=== PATIENT | female | born 1990 | race Caucasian/White ===

== ENCOUNTER 2024-11-07 09:28 | Emergency (ER) | payer SELFPAY ==
[2024-11-07 09:35] VITALS: BP 122/64; PULSE 88; TEMP 36.7; O2SAT 100; BMI 21.4
[2024-11-07 09:53] VITALS: O2SAT 99
[2024-11-07] MEDS: ORPHENADRINE 60 MG/2 ML VIAL IM (09:57)
[2024-11-07] MEDS: KETOROLAC TROMETHAMINE 30 MG/ML VIAL IM (09:57)
--- NOTE | 2024-11-07 13:07 | ED_ITS ---
HPI HPI - Back Pain/Injury General Chief Complaint: Back Pain/Injury Stated Complaint: BACK PAIN Time Seen by Provider: 11/07/24 09:39 Source: patient Mode of arrival: walk-in Limitations: no limitations History of Present Illness HPI Narrative: Patient is coming to the ER with the posterior aspect of her chest hurting for the last 3 days mostly whenever she is trying to grab something with her arm she will feel the pain in her back , she denies any difficulty breathing and she feels the pain mostly when she turned in the bed, she mentioned that she carries some heavy boxes at work, she denies any injury or the pain starting at work The patient mentioned that the pain there whenever she is moving she is denying difficulty breathing no chest pain no nausea no vomiting no other complaints and no history of any recent long trips or any leg edema Related Data Previous Rx's ?Medication ?Instructions ?Recorded diclofenac sodium 75 mg 75 mg PO BID PRN pain #20 ta bs 11/07/24 tablet,delayed release orphenadrine citrate 100 mg 100 mg PO BID PRN muscle s pasm #20 11/07/24 tablet,extended release tabs Allergies Allergy/AdvReac Type Severity Reaction Status Date / Time tramadol Allergy Mild Vomiting Verified 11/07/24 09:38 Opioid HPI Opioid Management Most Recent Opioid Data: Last Pain Scale 7 Today, 09:57 Last MAR Pain Assessment Today, 09:57 Review of Systems ROS Status of ROS 10 or more systems reviewed and unremark able except as noted in history and below Exam Narrative Exam Narrative: Nurses notes and vital signs reviewed and patient is not hypoxic. General: Well-appearing and in no apparent distress. Skin: Warm, dry, no pallor noted. No rash. Head: Normocephalic, atraumatic. Neck: Supple, non-tender. Eye: Pupils are equal, round and EOMI. No scleral icterus. Ears, Nose, Mouth, and Throat: TM are clear, no nasal mucosal hypertrophy. Oral mucosa is moist, no posterior oropharynx erythema, uvula is mid-line Cardiovascular: Regular Rate and Rhythm without murmur, gallop or rub. Respiratory: No accessory muscle use or respiratory distress. Lungs are clear to auscultation, no wheezing, rales or rhonchi Chest Wall: Tenderness upon palpation of the posterior aspect of the left upper chest wall around the scapular area and that patient pain induced also with the patient moving her left upper extremity forward mostly with flexion. Back: No midline thoracic or lumbar vertebral tenderness. No CVA tenderness Musculoskeletal: normal ROM, no calf or popliteal tenderness, no lower extremity edema/swelling GI: Abdomen is soft, non-distended. Normal bowel sounds. No masses appreciated. No tenderness to palpation. No rebound, guarding, or rigidity noted. Neurological: A&O x4. No cranial nerve dysfunction observed.. Constitutional Vital Signs, click to edit/add: Last Vital Signs Temp 98.1 F 11/07/24 09:35 Pulse 88 11/07/24 09:35 Resp 18 11/07/24 09:35 BP 122/64 11/07/24 09:35 Pulse Ox 99 11/07/24 09:53 O2 Del Method Room Air 11/07/24 09:53 Course Vital Signs Vital signs: Vital Signs Temperature 98.1 F 11/07/24 09:35 Pulse Rate 88 11/07/24 09:35 Respiratory Rate 18 11/07/24 09:35 Blood Pressure 122/64 11/07/24 09:35 Pulse Oximetry 100 11/07/24 09:35 Oxygen Delivery Method Room Air 11/07/24 09:35 Temperature 98.1 F 11/07/24 09:35 Pulse Rate 88 11/07/24 09:35 Respiratory Rate 18 11/07/24 09:35 Blood Pressure 122/64 11/07/24 09:35 Pulse Oximetry 99 11/07/24 09:53 Oxygen Delivery Method Room Air 11/07/24 09:53 MDM - Back Pain/Injury MDM Narrative Medical decision making narrative: The patient pain is muscular and comes whenever she is moving and there is no difficulty breathing and there is no concern right now for PE especially with the patient having no leg edema no difficulty breathing the pain is only there whenever she is moving and she just mentioned that she was carrying some heavy boxes at work after which the pain started The patient will be treated with Toradol in the ER discharged home with Voltaren and Norflex instructed on monitoring her symptoms she is to come back to the ER in case of any worsening of her symptoms The patient is to follow up with primary care physician in next 2-3 days or to return to the emergency department should any of the signs or symptoms worsen or new symptoms develop. The patient agrees with the following Diagnosis and Treatment plan and the patient will be discharged home. Discharge Plan Discharge Chief Complaint: Back Pain/Injury Clinical Impression: Acute chest wall pain Patient Disposition: Home, Self-Care Time of Disposition Decision: 09:51 Condition: Good Prescriptions / Home Meds: New orphenadrine citrate 100 mg tablet extended release 100 mg PO BID PRN (Reason: muscle spasm) Qty: 20 0RF diclofenac sodium 75 mg tablet,delayed release (DR/EC) 75 mg PO BID PRN (Reason: pain) Qty: 20 0RF Print Language: American Instructions: Chest Wall Pain (ED) Discharge Date/Time: 11/07/24 10:11
== END 2024-11-07 10:11 | disposition home or self-care (01) ==
LOC: ER 10:08
PROVIDERS: Emergency Provider Emergency Medicine
DX: R07.89 Other chest pain (principal)
CPT/HCPCS: 96372; 99284; J1885; J2360

== ENCOUNTER 2024-11-22 13:09 | Emergency (ER) | payer OTHER, SELFPAY ==
[2024-11-22 13:17] VITALS: BP 105/69; PULSE 83; TEMP 37.1; O2SAT 100; BMI 20.7
--- NOTE | 2024-11-22 13:33 | ED_ITS ---
HPI HPI - General Adult General Chief complaint: Back Pain/Injury Stated complaint: BACK PAIN Time Seen by Provider: 11/22/24 13:24 History of Present Illness HPI narrative: 34-year-old female presents for pain in her back. It is in the lumbar and thoracic spine area and she has had it for a few weeks. She points to the area just left of the thoracic spine and all the way across her lower back to indicate the areas of pain. She states it is from lifting heavy boxes at work and she continues to do so at work. She did not fall. She had been seen here and was put on a muscle relaxer but is not helping. Related Data Previous Rx's ?Medication ?Instructions ?Recorded diclofenac sodium 75 mg 75 mg PO BID PRN pain #20 ta bs 11/07/24 tablet,delayed release orphenadrine citrate 100 mg 100 mg PO BID PRN muscle s pasm #20 11/07/24 tablet,extended release tabs acetaminophen 300 mg-codeine 30 mg 1 tab PO Q6H PRN pa in 5 days #20 11/22/24 tablet tabs methocarbamol 500 mg tablet 500 mg PO Q8H PRN pain #20 tabs 11/22/24 Allergies Allergy/AdvReac Type Severity Reaction Status Date / Time tramadol Allergy Mild Vomiting Verified 11/22/24 13:15 Opioid HPI Opioid Management Most Recent Opioid Data: Last Pain Scale 7 11/07/24, 09:57 Review of Systems ROS Narrative A ten point review of systems is negative except as noted above. PFSH PFSH Social History Little interest or pleasure in doing things: not at all Feeling down, depressed, or hopeless: not at all Exam Narrative Exam Narrative: Nurses note and vital signs reviewed and patient is not hypoxic. General: The patient appears well and in no apparent distress. Patient is resting comfortably on cart. Skin: Warm, dry, no pallor noted. There is no rash noted. Head: Normocephalic, atraumatic Eye: Normal conjunctiva, no drainage Ears, Nose, Mouth, and Throat: oral mucosa is moist. Nares patent. Cardiovascular: Regular Rate and Rhythm Respiratory: Patient is in no distress, no accessory muscle use, lungs are clear to auscultation, no wheezing, rales or rhonchi Back: No bruise rash or abrasion. She has no focal area of tenderness to palpation anywhere on her back GI: Soft and nontender Musculoskeletal: The patient has no evidence of calf tenderness, no pitting edema, symmetrical pulses noted bilaterally Neurological: A&O, normal speech Psychiatric: Cooperative Constitutional Vital Signs, click to edit/add: Last Vital Signs Temp 98.7 F 11/22/24 13:17 Pulse 83 11/22/24 13:17 Resp 18 11/22/24 13:17 BP 105/69 11/22/24 13:17 Pulse Ox 100 11/22/24 13:17 O2 Del Method Room Air 11/22/24 13:17 Course Vital Signs Vital signs: Vital Signs Temperature 98.7 F 11/22/24 13:17 Pulse Rate 83 11/22/24 13:17 Respiratory Rate 18 11/22/24 13:17 Blood Pressure 105/69 11/22/24 13:17 Pulse Oximetry 100 11/22/24 13:17 Oxygen Delivery Method Room Air 11/22/24 13:17 Temperature 98.7 F 11/22/24 13:17 Pulse Rate 83 11/22/24 13:17 Respiratory Rate 18 11/22/24 13:17 Blood Pressure 105/69 11/22/24 13:17 Pulse Oximetry 100 11/22/24 13:17 Oxygen Delivery Method Room Air 11/22/24 13:17 Medical Decision Making MDM Narrative Medical decision making narrative: X-ray showed no acute findings and should be treated symptomatically. Treatment diagnosis and follow-up were discussed with the patient. Differential Diagnosis Differential Diagnosis: Lumbar strain, compression fracture, fracture Lab Data Lab results reviewed: Yes I reviewed the patient's lab results Labs: Lab Results 11/22/24 Range/Units 13:25 Urine Color Lt. yellow (YELLOW) Urine Clarity Clear (CLEAR) Urine pH 6.0 (5.0-9.0) Ur Specific [place] <=1.005 A (1.005-1.025) Urine Protein Negative (NEG/TRACE) mg/dL Urine Glucose (UA) Negative (NEGATIVE) mg/dL Urine Ketones Negative (NEGATIVE) mg/dL Urine Occult Blood Negative (NEGATIVE) Urine Nitrite Negative (NEGATIVE) Urine Bilirubin Negative (NEGATIVE) Urine Urobilinogen 0.2 (0.2-1.0) EU/dL Ur Leukocyte Esterase Small A (NEGATIVE) Urine RBC 0-2 (0-2) #/HPF Urine WBC 2-5 A (NONE SEEN) #/HPF Ur Squamous Epith Cells Few A (NONE/RARE) #/LPF Urine Crystals None seen (None Seen) #/HPF Urine Bacteria Trace A (NONE SEEN) #/HPF Urine Casts None seen (NONE SEEN) #/LPF Urine Mucus None seen (NONE SEEN) Ur Culture Indicated? Yes-[facility] [place] HCG, Qual Negative (NEGATIVE) Imaging Data Thoracic and lumbar spine x-rays: Radiologist's impression: No acute osseous abnormality evident. Mild S shaped scoliotic curvature of the thoracolumbar spine Discharge Plan Discharge Chief Complaint: Back Pain/Injury Clinical Impression: Low back pain Patient Disposition: Home, Self-Care Time of Disposition Decision: 15:00 Condition: Good Mode of Transportation: Private Vehicle Prescriptions / Home Meds: New acetaminophen-codeine 300-30 mg tablet 1 tab PO Q6H PRN (Reason: pain) 5 Days Qty: 20 0RF methocarbamol 500 mg tablet 500 mg PO Q8H PRN (Reason: pain) Qty: 20 0RF No Action orphenadrine citrate 100 mg tablet extended release 100 mg PO BID PRN (Reason: muscle spasm) Qty: 20 0RF diclofenac sodium 75 mg tablet,delayed release (DR/EC) 75 mg PO BID PRN (Reason: pain) Qty: 20 0RF Print Language: Slovenian Instructions: Acute Low Back Pain (ED) Referrals: Physician,Non-Staff, MD [Primary Care Provider] - 1 week
[2024-11-22 13:42] LABS: Bilirubin Urine NEGATIVE (NEGATIVE); Blood Urine NEGATIVE (NEGATIVE); Clarity Urine CLEAR (CLEAR); Color Urine LT. YELLOW (YELLOW); Glucose Urine UA NEGATIVE (NEGATIVE); Ketones Urine NEGATIVE (NEGATIVE); Leukocyte Esterase Urine SMALL (NEGATIVE); Nitrite Urine NEGATIVE (NEGATIVE); Protein Urine NEGATIVE (NEG/TRACE); Specific Gravity Urine <=1.005 (1.005-1.025); Urobilinogen Urine 0.2 EU/dL (0.2-1.0)
[2024-11-22 13:44] LABS: HCG Qualitative Urine* NEGATIVE (NEGATIVE); Internal Control Within Normal Limits
[2024-11-22 14:09] LABS: Bacteria Urine TRACE #/HPF (NONE SEEN); Cast Seen? NONE SEEN #/LPF (NONE SEEN); Crystals Seen? None Seen #/HPF (None Seen); Mucus Urine NONE SEEN (NONE SEEN); RBC Urine 0-2 #/HPF (0-2); Squamous Epithelial Cell Urine FEW #/LPF (NONE/RARE); Urine Culture Indicated YES-FRMC
== END 2024-11-22 15:20 | disposition home or self-care (01) ==
PROVIDERS: Emergency Provider Emergency Medicine
DX: M54.50 Low back pain, unspecified (principal); M54.6 Pain in thoracic spine
CPT/HCPCS: 72070; 72100; 81001; 84703; 87086; 99284

== ENCOUNTER 2025-05-18 16:44 | Emergency (ER) | payer SELFPAY ==
[2025-05-18 16:50] VITALS: BP 121/70; PULSE 64; TEMP 36.8; O2SAT 100; BMI 21.4
[2025-05-18 16:53] VITALS: BP 121/70; O2SAT 100
--- NOTE | 2025-05-18 17:42 | XR_ITS ---
[facility] [place] [id number] Patient Name: JULIO MCKOY MRN: [id number] date: 1990 Sex: F Assigned Patient Location: ED.MAIN Current Patient Location: ED.MAIN Accession/Order Number: [id number] Exam Date: 05/18/2025 17:55 Report Date: 05/18/2025 18:12 At the request of: KIRSTIN BARBA DO Procedure: XR chest 2V Plain film chest 2 view HISTORY: Left-sided rib pain. No injury COMPARISON: None FINDINGS: SUPPORT DEVICES: None POSTSURGICAL CHANGES: None HEART: Within normal limits PULMONARY NAZIA: Within normal limits MEDIASTINUM: Unremarkable LUNGS AND PLEURA: No acute lung process, pleural effusion or pneumothorax identified. BONY STRUCTURES: Moderate scoliosis ADDITIONAL FINDINGS None XR/XR chest 2V IMPRESSION: No acute process. Impression dictated by: Guillermo Rowe M.D. 05/18/2025 6:12 PM Dictation Location: [employer] Electronically authenticated by: [id number] Y Date: 05/18/2025 18:12
--- NOTE | 2025-05-18 17:42 | ECG_ITS ---
[facility] Test Date: 2025-05-18 Pat Name: JULIO MCKOY Department: Room: - Gender: Female Division [employer]: : 1990 Requested By: [id number] Order Number: [id number] Reading MD: WILMER RAYMUNDO M.D. Measurements Intervals [place] Rate: 54 P: 50 NH: 124 QRS: 85 QRSD: 86 T: 40 QT: 418 QTc: 405 Interpretive Statements 1100 Sinus rhythm 9110 normal ECG No previous ECG available for comparison Electronically Signed On 05-18-2025 18:16:56 EST by WILMER RAYMUNDO M.D.
[2025-05-18 17:46] VITALS: PULSE 61
[2025-05-18 17:50] VITALS: PULSE 79
[2025-05-18 18:00] LABS: Hematocrit 39.1 % (36.0-48.0); Hemoglobin 13.2 g/dL (12.0-16.0); Immature Granulocytes Abs Auto 0.01 10^3/uL (0.00-0.03); Immature Granulocytes Pct Auto 0.1 % (0.0-0.5); Lymphocytes Absolute Auto 3.0 10^3/uL (1.2-3.8); Mean Corpuscular HGB Conc 33.8 g/dL (29.9-35.2); Mean Corpuscular Hemoglobin 30.2 pg (26.7-34.0); Mean Corpuscular Volume 89.5 fL (81.0-99.0); Platelet Count 255 10^3/uL (150-450); Red Blood Count 4.37 10^6/uL (4.20-5.40); White Blood Count 8.3 10^3/uL (4.0-11.0)
[2025-05-18 18:20] LABS: Alanine Aminotransferase 14 U/L (14-59); Albumin Globulin Ratio 1.1; Albumin Level 3.6 g/dL (3.4-5.0); Alkaline Phosphatase 55 U/L (46-116); Anion Gap 9.5; Aspartate Amino Transferase 12 U/L (15-37); Blood Urea Nitrogen 5.0 mg/dL (7.0-18.0); Calcium 9.8 mg/dL (8.5-10.1); Carbon Dioxide 30.3 mmol/L (21.0-32.0); Chloride 105 mmol/L (98-107); Estimated GFR (African America >60 (>=60 mL/min/1.73m^2); Estimated GFR (Non-African Ame >60 (>=60 mL/min/1.73m^2); Globulin 3.2 g/dL; Glucose 86 mg/dL (74-106); Potassium 3.8 mmol/L (3.5-5.1); Sodium 141 mmol/L (136-145); Total Protein 6.8 g/dL (6.4-8.2)
[2025-05-18 18:50] VITALS: BP 121/70; PULSE 70; O2SAT 99
--- NOTE | 2025-05-19 09:55 | ED_ITS ---
HPI HPI - General Adult General Chief complaint: Chest Pain Stated complaint: SHARP PAIN LEFT SIDE UPPER TORSO Time Seen by Provider: 05/18/25 16:56 Source: patient Mode of arrival: walk-in History of Present Illness HPI narrative: Patient is a healthy 34-year-old female with no chronic medical conditions presenting to the emergency department for evaluation of left-sided chest pain. Patient states that she has been having burning pain in the left side of her chest/ribs for the last 3 days. She states that wearing a bra makes the pain worse. She denies any trauma to the area. She denies any rashes. She denies history of shingles. She denies history of OK or cardiac diseases. She denies any chest pain or shortness of breath. No fevers or chills. No nausea or vomiting. Related Data Home Medications ?Medication ?Instructions ?Recorded ?Confirmed No Known Home Medications 05/18/2502/02 Allergies Allergy/AdvReac Type Severity Reaction Status Date / Time tramadol Allergy Mild Vomiting Verified 11/22/24 13:15 Opioid HPI Opioid Management Most Recent Opioid Data: Last Pain Scale 7 11/07/24, 09:57 Review of Systems ROS Status of ROS 10 or more systems reviewed and unremark able except as noted in history and below PFSH PFSH Social History Little interest or pleasure in doing things: not at all Feeling down, depressed, or hopeless: not at all Exam Narrative Exam Narrative: CONSTITUTIONAL: Well-appearing, answering questions and following commands appropriately SKIN: Was warm and dry, no rashes or vesicles on the chest wall. EYES: Sclerae white. EARS, NOSE, THROAT: Moist oral mucosa. RESPIRATORY: Clear to auscultation bilaterally, no wheezes, crackles, or stridor, no use of accessory muscles CARDIOVASCULAR: Normal rate and regular rhythm. There is no S3, S4, murmur, rub. GASTROINTESTINAL: Abdomen is nondistended. MUSCULOSKELETAL: There is no reproducible tenderness to palpation throughout the left side of her rib cage. There are no deformities of the chest wall. NEUROLOGIC: Patient is awake and alert. Equal strength and sensation to light touch in the bilateral upper extremities. Facies were symmetrical. Constitutional Vital Signs, click to edit/add: Last Vital Signs Temp 98.2 F 05/18/25 16:50 Pulse 70 05/18/25 18:50 Resp 18 05/18/25 18:50 BP 121/70 05/18/25 18:50 Pulse Ox 99 05/18/25 18:50 O2 Del Method Room Air 05/18/25 18:50 Course Vital Signs Vital signs: Vital Signs Temperature 98.2 F 05/18/25 16:50 Pulse Rate 64 05/18/25 16:50 Respiratory Rate 16 05/18/25 16:50 Blood Pressure 121/70 05/18/25 16:50 Pulse Oximetry 100 05/18/25 16:50 Oxygen Delivery Method Room Air 05/18/25 16:50 Temperature 98.2 F 05/18/25 16:50 Pulse Rate 70 05/18/25 18:50 Respiratory Rate 18 05/18/25 18:50 Blood Pressure 121/70 05/18/25 18:50 Pulse Oximetry 99 05/18/25 18:50 Oxygen Delivery Method Room Air 05/18/25 18:50 Medical Decision Making MDM Narrative Medical decision making narrative: Patient is a 34-year-old female presenting to the emergency department for 3-day history of atraumatic burning left-sided rib/chest pain. Vital signs arrival are within normal limits. She is afebrile and hemodynamically stable. Examination as noted above. My clinical impression is that the patient symptoms may be secondary to early shingles, with the rash not yet presenting. However, I did obtain a cardiac workup and chest x-ray to rule out underlying etiologies such as arrhythmia, pneumothorax, or rib fracture/lesions. Laboratory studies were unremarkable. No significant electrolyte or metabolic derangement. No evidence of acute kidney injury. No anemia, leukocytosis, or thrombocytopenia. No transaminitis or hyperbilirubinemia. Chest x-ray independently reviewed/interpreted by myself demonstrated no acute cardiopulmonary process. 12 Lead EKG: Normal sinus rhythm at normal rate. Normal axis. No ST segment elevations. QRS, NH, and QTc interval within normal limits. Final impression: normal sinus rhythm without evidence of acute myocardial ischemia. I do believe the patient is stable for discharge. Patient's presentation is most likely consistent with musculoskeletal pain or early shingles. They were instructed to follow up with her PCP for further care. Return precautions were given including any new or worsening symptoms, including development of a vesicular rash. Patient understands and agrees to the plan. FINAL IMPRESSION: #Acute left-sided chest pain DISPOSITION: Discharged home CONDITION: Good Lab Data Lab results reviewed: Yes I reviewed the patient's lab results Labs: Lab Results 05/18/25 Range/Units 17:50 WBC 8.3 (4.0-11.0) 10^3/uL RBC 4.37 (4.20-5.40) 10^6/uL Hgb 13.2 (12.0-16.0) g/dL Hct 39.1 (36.0-48.0) % MCV 89.5 (81.0-99.0) fL MCH 30.2 (26.7-34.0) pg MCHC 33.8 (29.9-35.2) g/dL RDW 11.9 (11.0-15.0) % Plt Count 255 (150-450) 10^3/uL MPV 10.4 (9.5-13.5) fL Neut % (Auto) 54.7 (43.0-75.0) % Lymph % (Auto) 35.5 (20.5-60.0) % [place] % (Auto) 6.6 (1.7-12.0) % Eos % (Auto) 2.6 (0.9-7.0) % Baso % (Auto) 0.5 (0.2-2.0) % Neut # (Auto) 4.6 (1.4-6.5) 10^3/uL Lymph # (Auto) 3.0 (1.2-3.8) 10^3/uL [place] # (Auto) 0.6 (0.3-0.8) 10^3/uL Eos # (Auto) 0.2 (0.0-0.7) 10^3/uL Baso # (Auto) 0.0 (0.0-0.1) 10^3/uL Abs Immat Gran (auto) 0.01 (0.00-0.03) 10^3/uL Imm/Tot Granulo (auto) 0.1 (0.0-0.5) % Sodium 141 (136-145) mmol/L Potassium 3.8 (3.5-5.1) mmol/L Chloride 105 (98-107) mmol/L Carbon Dioxide 30.3 (21.0-32.0) mmol/L Anion Gap 9.5 BUN 5.0 L (7.0-18.0) mg/dL Creatinine 0.77 (0.55-1.02) mg/dL Est GFR ( Amer) >60 (>=60 mL/min/1.73m^2) Est GFR (Non-Af Amer) >60 (>=60 mL/min/1.73m^2) BUN/Creatinine Ratio 6.5 Glucose 86 (74-106) mg/dL Calcium 9.8 (8.5-10.1) mg/dL Total Bilirubin 0.3 (0.2-1.0) mg/dL AST 12 L (15-37) U/L ALT 14 (14-59) U/L Alkaline Phosphatase 55 (46-116) U/L Total Protein 6.8 (6.4-8.2) g/dL Albumin 3.6 (3.4-5.0) g/dL Globulin 3.2 g/dL Albumin/Globulin Ratio 1.1 Imaging Data Chest x-ray: Attestation: I personally reviewed and interpreted this imaging study as follows: Radiologist's impression: ITS Impressions Chest X-Ray 05/18/25 17:42 IMPRESSION: No acute process. Impression dictated by: Guillermo Rowe M.D. 05/18/2025 6:12 PM Dictation Location: [place] [id number] Electronically authenticated by: [id number] Y Date: 05/18/2025 18:12 ECG Data Attestation: I personally reviewed and interpreted this ECG as follows: Discharge Plan Discharge Chief Complaint: Chest Pain Clinical Impression: Acute chest wall pain Patient Disposition: Home, Self-Care Time of Disposition Decision: 18:34 Condition: Good Mode of Transportation: Private Vehicle Prescriptions / Home Meds: No Action No Known Home Medications Print Language: [place]ese Instructions: Chest Wall Pain (ED) Additional Instructions: Follow up with your family DR, work note provided Referrals: Physician,Non-Staff, MD [Primary Care Provider] - 1 week Discharge Date/Time: 05/18/25 18:52
== END 2025-05-18 18:52 | disposition home or self-care (01) ==
PROVIDERS: Emergency Provider Student in an Organized Health Care Education/Training Program
DX: R07.89 Other chest pain (principal)
CPT/HCPCS: 36415; 71046; 80053; 85025; 93005; 99285

== ENCOUNTER 2025-06-19 14:14 | Outpatient (OUT) | payer OTHER, SELFPAY ==
--- OUTSIDE RECORDS SUMMARY | 2025-06-19 14:17 | XMS_ITS | Continuity of Care Document ---
Author Organization [facility] Address [address] [place] [address] Phone Care Team Providers Care Marketing Planner Name Role Phone Katie Barreto APRN Primary Care Provider Iram Lam DO Attending Provider Care Teams Patient Care Team Team Status: Active Member Role/Relationship Status Dates Katie Barreto APRN Primary Care Provider Activ e Visit Care Team Team Status: Inactive Member Role/Relationship Status Dates Katie Barreto APRN Primary Care Provider Activ e Start: May 23, 2025 End: May 23, 2025Sajan Lam DOAttending ProviderActiveStart: May 23, 2025 End: May 23, 2025 Chief Complaint and Reason for Visit Chief Complaint Admit Date breast pain May 23, 2025 12:55pm Reason for Visit Admit Date Breast pain, left May 23, 2025 12:55pm Allergies, Adverse Reactions, Alerts Allergen Type Severity Reaction Last Updated Verified Status tramadol Allergy Mild Vomiting May 23, 2025 12:59pm Ye s Active Social History Smoking Status Status Start Date End Date Date of Observa tion Smokes tobacco daily (finding) December 31, 2023 8:51am Observation Status Observation Response Date of Response Legal Sex Female (finding) [facility] 1989 Family History Relationship Condition Age at Onset Recorded Date/T radha mother Unknown Motor vehicle accidentUnknown Problems Active Problems Problem Diagnosis/Recorded Date Onset Date Stat us Breast pain, left May 23, 2025 1:24pm Unknown Active Family planning services September 29, 2018 7:21am Unkno wn Active Encounter for tubal ligation September 29, 2018 7:21am U nknown Active 31 to 32 weeks gestation of July 06 018 9:22am Unknown Active labor in third trimester July 06, 2018 9 :23am Unknown Active Lumbar back sprain December 27, 2024 2:56pm Unknown Active Annual visit for general reji lt medical examination without abnormal findings December 27, 2024 3:07pm Unknown Active History of labor July 06, 2018 9:23am Un known Active Medications Medication Status Dose Units Route Directions Qty Days Refills S tart Date Stop Date End Date Reason(s) Instructions Adherence Vit 09-Donl-Nbjle-Dha 65-1-250 mg Combo Pack Discon tinued 1 TAB PO Daily July 20, 2018 12:00amMarch 2018 6:39amCephalexin 500 mg capsule Mqcgwzboudmf490VZSBC7L65320Tngorwbc 2017 12:00amJanuary 2018 12:00am July 15, 2018 12:02amIbuprofen 600 mg BzxwihKxdwprjkacvg302QEUOB6W as needed for Efnw295Ipqjv2018 11:00pmDecember 31, 2023 7:47amDocusate Sodium (Colace) 100 mg xzpgbgvDzmtoeawmews502XZQDJnfzz at cfuxbza025Gzifz2018 11:00pmDece 2023 7:47amconstipationGabapentin 300 mg hzkedupMulimp985IOMC Twice pgppp26903ZjbkifqhMay 23, 2025 12:00amNeuropathic pain Neuralgia and neuritis, unspecifiedComplies with drug therapyDiclofenac Sodium 75 mg tablet,delayed release (DR/EC)Syrmaffuqutr32VEMSOgdj 2024 11:00pm December 27, 2024 2:58pmOrphenadrine Citrate 100 mg tablet extended release DiscontinuedMGPOJune 2024 11:00pmJun2024 2:57pmPrednisone 10 mg vgtxujUshdertvbuff25ILGN.JTYUTJB5784Flpj 2024 11:00pmNov2024 1:00pmback pain10 mg orally Take 4 tablets X 2 days, then take 3 tablets X 2 days then take 2 tablets X 2 days then 1 tablet X 2 days then stop, take with food and without other NSAIDS.;Tizanidine 2 mg ybcgvuVubpgbzfvuar4SZSHWbvrm 8 hours as needed for muscle uooiilnuui7545Pzhq 2024 11:00pmNov2024 1:00pm Vital Signs Vital Reading Result Reference Range Collection Date/Time Height 61 [in_i] May 23, 2025 12:42gqBliept11.97 kgMay 23, 2025 12:57pmHeart Rate65 /eer28-769XeqwzgllMay 23, 2025 12:57pmOxygen saturation by Pulse inermjnp95 % 95-100May 23, 2025 12:57pmBP Hogmyely777 mm[Hg]100-140May 23, 2025 12:57pmBP Niivpgxnu34 mm[Hg]60-100May 23, 2025 12:57pmBMI (Body Mass Index)22.4 kg/o2OfnszyrcMay 23, 2025 12:57pm Advance Directives Advance Directive Response Recorded Date/ Time Advance Directives No February 23, 2018 6:27am Insurance Providers Guarantor Nelly Villegas Address [address] [place], [place] [address]Contact Info.Home Phone: Coverage Status Update:2024 Payer Group Member ID Coverage Type Subscriber Relationship to Subscriber Effective Date Expiration Date [employer] [id number] R McCleary Id: [id number] [address] [place] [address] Home Phone: Email: [email or web address] ADVAT [id number] [employer] [id number] R McCleary Id: [id number] [address] [place] [address] Home Phone: Email: [email or web address] CommunicationsMaria Alejandra Schofield ARIANA Id: [id number] R McCleary Id: [id number] [address] [place] [address] Home Phone: Email: [email or web address] Encounters Encounter Location(s) Arrival/Admit Date Discharge/Departure Date Discharge/Departure Disposition Provider(s) Departed Physician/ Provider Office Visit -[facility] May 23, 2025 12:55pm May 23, 2025 1:24pm Discharged to home care or self care (routine discharge) Iram Lam , Recent Diagnosis Onset Date Admit Date Breast pain, left Unknown May 23, 2025 12:55pm Assessments Diagnosis Onset Date Resolution Status Admit Date Breast pain, left acuteNov2024 12:55pm Plan of Treatment Author [facility]ram Lam [facility]AuthoredNov[facility]24 1:37pmPatient with over 5 days of left-sided breast pain. The pain extends from left axilla into the breast. No pain with palpation. She reports a burning sensation of the skin. No rashes. Denies nipple discharge. Denies family history of breast cancer. Denies any mass. She was recently evaluated in the emergency room. States the pain is constant. No pain with ambulation. Denies any heartburn. Nothing makes it better or worse. Recent CBC and CMP relatively normal. Denies any history of shingles chest x-ray with no acute findings. EKG was normal sinus rhythm. Differential includes but not limited to cyclical mastalgia, cyst/mass, shingles, or chest wall pain/costochondritis. Discussed that typically the shingles rash presents within 5 days of onset of symptoms. However, this can be longer in some individuals. She was advised to continue to monitor for any rashes or skin changes and inform our office. Educated patient that shingles is contagious in the event she develops a rash. Recommend we obtain a breast ultrasound. Will trial gabapentin nightly and she can titrate up as tolerating for her pain. Counseled on risks, benefits, and common side effects. Counseled on return precautions. Work note given. Recommend follow up with pcp in 3-4 weeks. Future Tests Future scheduled test information is unavailable Pending Tests Test Name Ordered Date Scheduled Date US breast LT complete May 23, 2025 1:24pm Future Visits Future appointment information is unavailable Future Procedures Future procedure information is unavailable Future Medications Future medication information is unavailable Patient Instructions Patient instructions are unavailable
--- NOTE | 2025-06-19 14:22 | US_ITS ---
Patient Name: JULIO MCKOY MR#: [id number] : 1990 Exam Date: 06/19/2025 Ordering Doctor: LAI MACKAY RADIOLOGY REPORT PROCEDURE: MM TOMOSYNTHESIS DIAGNOSTIC BI, 06/19/2025, 14:21 US BREAST LT LIMITED, 06/19/2025, 14:57 COMPARISON: None. INDICATIONS: Pain Of Left Breast Calculator Name NCI Breast Cancer Risk Assessment Tool 5 Year Breast Cancer Risk 0.30% Lifetime Breast Cancer Risk 6.80% Personal Breast Cancer No Personal Ovarian Cancer No Treatments None Family Cancers Grandmother-maternal with lung cancer at age 70; Mother with leukemia cancer at age 65. LOCATION: [facility] BREAST COMPOSITION: The breasts are heterogeneously dense, which may obscure small masses. FINDINGS: RIGHT BREAST: No significant suspicious finding. LEFT BREAST: No significant suspicious finding. Benign-appearing calcifications are present. Limited left breast ultrasound: Within the left breast in the region of pain 1.3 cm from the nipple is a cluster of microcysts measuring 2.5 x 0.7 by 1.5 cm in greatest dimension. In the left breast 0.4 cm from the nipple there is a simple appearing cysts measuring 1.0 x 1.2 x 0.8 cm in greatest dimension. Adjacent to this 1.2 cm from the nipple at the 2 o'clock position the is a 1.0 by 0.9 x 0.6 cm simple appearing cyst. DIAGNOSTIC CATEGORY 3--PROBABLY BENIGN FINDING. THE FOLLOWING FINDING(S) HAS A HIGH PROBABILITY OF A BENIGN ETIOLOGY: RECOMMENDATIONS: SHORT TERM FOLLOW-UP ULTRASOUND LEFT BREAST IN 6 MONTHS. Dictated by: Chapo Mario MD on 06/19/2025 at 15:22 Approved by: Chapo Mario MD on 06/19/2025 at 15:25
== END 2025-06-19 14:15 | disposition home or self-care (01) ==
LOC: MAMMO 14:14
PROVIDERS: Visit Provider Student in an Organized Health Care Education/Training Program
DX: N64.4 Mastodynia (principal); Z80.1 Family history of malignant neoplasm of trachea, bronchus and lung; Z80.6 Family history of leukemia; R92.8 Other abnormal and inconclusive findings on diagnostic imaging of breast
CPT/HCPCS: 76642; 77066; G0279